=== PATIENT | male | born 1950 | race Caucasian/White ===

== ENCOUNTER 2017-12-17 18:01 | Emergency (ER) | payer MEDICARE, BC ==
[~2017-12-17] VITALS: Ht 182.9 cm; Wt 98.0 kg
[2017-12-17] MEDS ORDERED: [UNRECOGNIZED DRUG - REMARK] (18:26)
[2017-12-17] MEDS ORDERED: LOSA100T15 PO (18:26)
[2017-12-17] MEDS ORDERED: CIPR-262 PO (18:26)
[2017-12-17] MEDS ORDERED: ROSU10TA PO (18:26)
[2017-12-17] MEDS ORDERED: DEXL30CA3 PO (18:26)
--- NOTE | 2017-12-17 18:33 | NUR ---
AOX4, NAD, respiration:easy pending MD evaluation
--- NOTE | 2017-12-17 18:37 | NUR ---
Dr Castillo is at bedside evaluating the patient at this time.
--- NOTE | 2017-12-17 18:57 | NUR ---
Patient discharged to home in stable conditon & brisk steady gait. Written and verbal after care instructions given to patient. Patient verbalizes understanding of instructions.
== END 2017-12-17 19:02 | disposition home or self-care (01) ==
LOC: ER 18:02
DX: R07.89 Other chest pain (principal); I10 Essential (primary) hypertension; E78.5 Hyperlipidemia, unspecified; Z79.2 Long term (current) use of antibiotics; Z79.899 Other long term (current) drug therapy
CPT/HCPCS: 71045; 93005; A4663